=== PATIENT | male | born 1955 | race Caucasian/White ===

== ENCOUNTER → 2017-11-09 | Outpatient (CLI) | payer OTHER ==
[~2017-11-09] MED LIST: BUDE180I INH; CETI10TA84 PO; CYAN100073 PO; DOXA4TAB2 PO; GADAVIST IV PRN; LEVA45AE INH; LISI10TA PO; MULT-190 PO; PANT40TA PO
--- NOTE | 2017-11-09 14:09 | DIAGNOSTIC IMAGING REPORT ---
PROSTATE MRI COMBO CLINICAL HISTORY: 62 years-old Male presenting with PROSTATE CA. PSA 4.3 ng/mL. TECHNIQUE: Multisequence, multiplanar MR imaging of the prostate was performed 4 and after intravenous administration of 10 cc of Gadavist IV. Additional postprocessing was performed on a separate [employer] workstation by the radiologist for 3-D volumetric segmentation of the prostate and contouring of region(s) of interest (TYSON) for targeting. COMPARISON: CT of the abdomen and pelvis March 31, 2013. FINDINGS: Prostate: The prostate measures 5 x 4.3 x 4.5 cm cm (DynaCAD prostate boundary segmentation volume 50.31 mL). Moderate changes of benign prostatic hyperplasia. Precontrast T1 weighted imaging demonstrates no evidence of intrinsic T1 hyperintensity to suggest hemorrhage. Seminal vesicles normal. Suspicious lesion(s) described below: Lesion (DynaCAD TYSON) : Note is made of a 1.1 x 0.8 x 0.9 cm T2 hypointense focus within the right mid anterior transitional zone which demonstrates subtle increased signal intensity on the diffusion-weighted sequence and moderately decreased signal intensity on the ADC map with early enhancement. This is considered a PI-RADS 4 lesion. No additional suspicious lesions are identified. Bladder: Normal. Bowel: Visualized portion of the rectum normal. Note is made of T2 hyperintense material located between the rectum and prostate within the midline. This represents expected findings following placement of hydrogel. Lymph nodes: No lymphadenopathy in the visualized portion of the pelvis. Vasculature: Iliac vessels patent. Abdominal wall: Normal. Osseous structures: Normal bone marrow signal intensity. IMPRESSION: 1. 1.1 x 0.8 x 0.9 cm T2 hypointense focus with hypointensity on the ADC sequence and mild restricted diffusion within the right mid transitional zone within the mid gland. This lesion is suspicious for prostate cancer and considered a PI-RADS 4 lesion - Clinically significant cancer is likely to be present. This lesion has been segmented for targeted biopsy. 2. T2 hyperintense material located between the rectum and prostate within the midline which represents expected findings following placement of hydrogel. 3. Moderate benign prostatic hyperplasia. Electronically signed by: Melo Pearson M.D. 11/09/2017 2:08 PM Dictated Date/Time: 11/09/2017 9:49 AM
== END | disposition home or self-care (01) ==
LOC: C.MRIBC 08:08
PROVIDERS: ATTEND Family Medicine
DX: C61 Malignant neoplasm of prostate (principal); R93.8 Abnormal findings on diagnostic imaging of other specified body structures

== ENCOUNTER → 2018-02-18 | Outpatient (CLI) | payer OTHER ==
[~2018-02-18] MED LIST changes: -GADAVIST IV PRN
--- NOTE | 2018-02-18 09:44 | DIAGNOSTIC IMAGING REPORT ---
CT LUNG SCREENING, LOW DOSE WITH COMPUTER-AIDED DETECTION (CAD) CLINICAL HISTORY: LOW DOSE LUNG SCREENING smoker COMPARISON STUDY: No previous studies for comparison. CT DOSE: 78.43 mGy.cm TECHNIQUE: Low-dose helical CT was acquired without intravenous contrast from lung apices to bases and reconstructed at 2.5 mm every 2 mm. CAD was utilized for this study. A dose lowering technique was utilized adhering to the principles of ALARA. FINDINGS: Thyroid: Imaged portions of the thyroid gland are normal in appearance. Thoracic aorta: The thoracic aorta is normal in course and caliber, noting standard 3 vessel arch anatomy. Heart: The heart is normal in size and configuration, without pericardial effusion. Lungs and pleural spaces: There are no pleural effusions. There is no focal pulmonary consolidation. There are mild dependent atelectatic changes on the right. There is a low suspicion 2 mm right middle lobe perifissural nodule. Mediastinum: There is no mediastinal lymphadenopathy. Susan: There is no evidence of pathologic hilar adenopathy given the limitations of a noncontrast study Axilla: Clear. Upper abdomen: Partially visualized upper abdominal viscera is within normal limits. Skeletal structures: There are no lytic or blastic osseous lesions. IMPRESSION: 1. Low suspicion 2 mm right middle lobe perifissural nodule. [address] scanning is recommended in follow-up CAD FINDINGS: Nodule 1 Category: 2 Nodule 1 Status: Baseline Nodule 1 Description: Solid Nodule 1 Lesion ID: 1 Nodule 1 Slice Number: 63 Nodule 1 Volume (mm3): 5 Nodule 1 Major [place] mm: 3.3 Nodule 1 Minor [place] mm: 2.5 Overall Lung RADS Category: 2 Lung RADS Management Recommendation: Continue annual lung cancer screening. Lung RADS Follow Up Date: 2019-02-18 Lung RADS Nodule ID: 1 Electronically signed by: Venkat Javier M.D. 02/18/2018 9:43 AM Dictated Date/Time: 02/18/2018 9:36 AM
== END | disposition home or self-care (01) ==
LOC: C.CTS 09:15
PROVIDERS: ATTEND Physician Assistant
DX: R91.1 Solitary pulmonary nodule (principal); Z87.891 Personal history of nicotine dependence

== ENCOUNTER → 2018-02-25 | Outpatient (CLI) | payer OTHER ==
[~2018-02-25] MED LIST changes: +LEVA45AE
== END | disposition home or self-care (01) ==
LOC: C.LAB1850 10:05
PROVIDERS: ATTEND Physician Assistant Medical
DX: C61 Malignant neoplasm of prostate (principal)

== ENCOUNTER 2021-04-14 16:08 | Observation (INO) ==
[2021-04-14 16:49] LABS: Basophils # (auto) 0.01 K/uL (0-0.2); Basophils % (auto) 0.1 %; Eosinophils # (auto) 0.15 K/uL (0-0.5); Eosinophils % (auto) 2.2 %; Hematocrit (blood only) 43.8 % (42-52); Hemoglobin 14.8 g/dL (14.0-18.0); Immature Granulocytes # (auto) 0.02 K/uL (0.00-0.02); Immature Granulocytes % (auto) 0.3 %; Lymphocytes # (auto) 1.11 K/uL (1.2-3.4); Lymphocytes % (auto) 16.1 %; Mean Corpuscular Hemoglobin 28.2 pg (25-34); Mean Corpuscular Hgb Conc 33.8 g/dL (32-36); Mean Corpuscular Volume 83.6 fL (80-100); Mean Platelet Volume 8.9 fL (7.4-10.4); Monocytes % (auto) 10.1 %; Neutrophils # (auto) 4.91 K/uL (1.4-6.5); Neutrophils % (auto) 71.2 %; Platelet Count 185 K/uL (130-400); RDW Standard Deviation 48.6 fL (36.4-46.3); Red Blood Count 5.24 M/uL (4.7-6.1)
[2021-04-14 16:55] LABS: Partial Thromboplastin Time 25.2 Seconds (21.0-31.0); Prothrombin Time 10.5 Seconds (9.0-12.0)
--- NOTE | 2021-04-14 16:56 | Emergency Department Note ---
Impression & Plan Pulmonary embolism, Pulmonary nodule, right, History of prostate cancer ED Provider Note NAME: MIKEY MENDOZA AGE: 65 SEX: M ARRIVES VIA: Walk-In INFORMANT: patient ED PROVIDER(S): Martin Alberto MD CHIEF COMPLAINT: Referred. Outpatient CT with pulmonary emboli. PLAN: Disposition: Admit MEDICAL DECISION MAKING: The patient is a pleasant 65-year-old gentleman with a past medical history of JOSSIE on CPAP, COPD, hypertension, history of prostate cancer treated in 2018 with radiation therapy after having failed attempt at surgical resection and since in remission per the patient per trending PSAs who presents to the emergency department referred by his manager billing after having outpatient CT scan to evaluate his progressive exertional dyspnea and CT demonstrated right-sided segmental pulmonary emboli in addition to a new 6 mm irregular right upper lobe pulmonary nodule. Reports he has a chronic dry cough which he attributes to his acid reflux and otherwise denies any new or worsening cough, fevers, nausea, vomiting, diarrhea urinary symptoms. He denies any history of GI bleeding. On arrival the patient is in no acute distress, afebrile stable vital signs. He has a scant intermittent wheeze and lungs are otherwise clear. His respiratory effort is normal. EKG without overt acute ischemia. WBC, H/H and platelets within normal limits. Chemistry without metabolic acidosis. Electrolytes and LFTs unremarkable. Troponin negative/undetectable. Given the patient's age, history of cancer and lung disease PESI score is high risk and therefore reasonable to proceed with admission. Patient and his at bedside agree with this. Case was discussed with David Webb, with Dr. Robbin Hernandez hospitalist who will evaluate the patient for admission. Anticoagulation per admitting team. Triage Nursing notes reviewed and agree them. prior medical records reviewed Vital Signs: reviewed and remarkable for no significant abnormalities Differential diagnosis: Reactive airway disease, pneumonia, pneumothorax, COPD, CHF, infections, cardiac ischemia, pulmonary embolism, musculoskeletal, gastrointestinal, as well as other pathologies. ER treatment provided: See below. Diagnostics interpreted by me: ECG: NSR, 61 bpm, no ectopy, LVH, no overt ST elevation or depression. Cardiac Monitoring: An order for continuous cardiac monitoring was placed and demonstrated NSR, 61 bpm, no ectopy. Laboratory studies: See below Imaging studies: Outpatient CT 04/14/2021: CT ANGIOGRAM OF THE CHEST CLINICAL HISTORY: Dyspnea. COMPARISON STUDY: Chest CT dated 03/03/2019. TECHNIQUE: Following the IV administration of 120 cc of Optiray 320, CT angiogram of the chest was performed from the upper abdomen to the thoracic inlet utilizing the pulmonary embolus protocol. Images are reviewed in the axial, sagittal, and coronal planes. 3-D MIPS images are created and assessed. IV contrast was administered without complication. A dose lowering technique was utilized adhering to the principles of ALARA. CT DOSE: 525.88 mGycm FINDINGS: Thyroid: Imaged portions of the thyroid gland are normal in size and attenuation. Thoracic aorta: The thoracic aorta is normal in caliber and demonstrates standard 3-vessel variant arch anatomy. There is a bovine arch, and the left vertebral artery arises directly from the thoracic aorta. No dissection is seen. Pulmonary vasculature: The pulmonary trunk is normal in caliber. There are segmental emboli within branches of the right upper lobe pulmonary artery. The remaining pulmonary vessels appear clear. Heart: The heart is mildly enlarged and without pericardial effusion. Lungs and pleural spaces: Emphysematous change is noted. There is trace right pleural effusion. No airspace consolidation is seen typical for pneumonia. There is bibasilar scarring/atelectasis. The trachea and central airways are clear. There is a 6 mm irregular pulmonary nodule in the right upper lobe seen on image #169. An additional 3 mm right upper lobe pulmonary nodule is seen on image #188. Mediastinum: There is no mediastinal lymphadenopathy. Susan: Clear. Axillae: There is no axillary lymphadenopathy. Upper abdomen: There is a small hiatal hernia. Partially visualized upper abdominal viscera is otherwise within normal limits. Skeletal structures: No lytic or blastic bony lesions are seen. IMPRESSION: 1. There are segmental pulmonary emboli within branches of the right upper lobe pulmonary artery. 2. There is no airspace consolidation typical for pneumonia. 3. Trace right pleural effusion. 4. There is a 6 mm irregular right upper lobe pulmonary nodule. This is pathologically indeterminant but morphologically concerning, and this new from the 03/03/[address] A 3 month follow-up chest CT is recommended for reassessment. 5. An additional 3 mm right upper lobe pulmonary nodule is also new from previous and can also be reassessed at follow-up. 6. Mild cardiomegaly and emphysema. ACT 112: Positive. There are findings on this exam that require communication between the performing entity and the patient following Patient Test Result Information Act ([place] Act 112) guidelines. Electronically signed by: Prem Sanchez M.D. 04/14/2021 3:51 PM Consultation(s): David Webb, with Dr. Robbin Hernandez hospitalist who will e valuate the patient for admission. HPI: The patient is a pleasant 65-year-old gentleman with a past medical history of JOSSIE on CPAP, COPD, hypertension, history of prostate cancer treated in 2018 with radiation therapy after having failed attempt at surgical resection and since in remission per the patient per trending PSAs who presents to the emergency department referred by his manager billing after having outpatient CT scan to evaluate his progressive exertional dyspnea and CT demonstrated right- sided segmental pulmonary emboli in addition to a new 6 mm irregular right upper lobe pulmonary nodule. Reports he has a chronic dry cough which he attributes to his acid reflux and otherwise denies any new or worsening cough, fevers, nausea, vomiting, diarrhea urinary symptoms. He denies any history of GI bleeding. ROS: See above HPI for pertinent positives & negatives. A total of 10 systems reviewed and were otherwise negative. PAST MEDICAL HISTORY: See Below PAST SURGICAL HISTORY: see Below FAMILY HISTORY: see Below SOCIAL HISTORY: see Below HOME MEDICATIONS: see Below ALLERGIES: see Below VITALS: see Below PHYSICAL EXAMINATION: GENERAL: Awake, alert, fatigued-appearing, in no distress HENT: Normocephalic, atraumatic. Oropharynx with dry mucous membranes and otherwise unremarkable. EYES: Normal conjunctiva. Sclera non-icteric. NECK: Supple. No nuchal rigidity. FROM. No JVD. RESPIRATORY: Scant intermittent wheeze otherwise clear to auscultation. CARDIAC: Regular rate, normal rhythm. Extremities warm and well perfused. Pulses equal. ABDOMEN: Soft, non-distended. No tenderness to palpation. No rebound or guarding. No masses. RECTAL: Deferred. MUSCULOSKELETAL: Chest examination reveals no tenderness. The back is symmetrical on inspection without obvious abnormality. There is no CVA tenderness to palpation. No joint edema. LOWER EXTREMITIES: Calves are equal size bilaterally and non-tender. No edema. No discoloration. NEURO: Normal sensorium. No sensory or motor deficits noted. SKIN: No rash or jaundice noted. Martin Alberto MD Past Med/Surg History Medical History Allergic rhinitis Arthroscopy (03/31/13) "ACL REPAIR " COPD with asthma History of prostate cancer S/p radiation and Lupron treatment for 6 months Hypertension Kidney stones, mixed calcium oxalate JOSSIE on CPAP Pulmonary nodule Surgical History History of cholecystectomy History of inguinal hernia repair Family History Father Lung cancer Social History Smoking Status: Former smoker Cigarettes Per Day: 30; Smoking End Date: 2007; Second Hand Exposure: No; Hx Alcohol Use: Yes Alcohol type: beer Alcohol type Comment: 2 beers and 1 shot whiskey/night Hx Substance Use: No Preferred Language: Armenian Communication Ability: Effective Beliefs That Will Affect Care: None Current Living Situation: Spouse Other Information That Helps Us Care for You: No Feels Safe at Home: Yes Safety Concerns: Feels Safe At This Time Assistive Devices: None Allergies Allergies Allergy/AdvReac Type Severity Reaction Status Date / Time No Known Allergies Allergy Unverified 04/14/21 17:24 Home Meds Home Medications Medication Instructions Recorded Confirmed doxazosin 4 mg tablet 4 mg PO HS tab 04/27/20 04/14/21 montelukast 10 mg tablet 10 mg PO HS 04/27/20 04/14/21 cetirizine 10 mg capsule 10 mg PO DAILY cap 03/01/21 04/14/21 cyanocobalamin (vitamin B-12) 1,000 mcg PO DAILY tab 03/01/21 04/14/21 1,000 mcg tablet,extended release levalbuterol tartrate 45 2 inh INHALATION Q6H PRN 03/01/21 04/14/21 mcg/actuation aerosol inhaler pantoprazole 40 mg tablet,delayed 40 mg PO DAILY tab 03/01/21 04/14/21 release vitamins A,C,K-aigb-bfzlsh 14,320 1 cap PO BID 03/01/21 04/14/21 unit-226 mg-200 unit capsule losartan-hydrochlorothiazide 1 tab PO DAILY 04/14/21 04/14/21 Previous Rx's Medication Instructions Recorded fluticasone fur. 100 mcg-umeclid 1 inh INHALATION DAILY #60 ea 04/14/21 62.5 mcg-vilant 25 mcg inhalat.powder Results & Data (ED) Vital Signs Vital Signs - 24 hr 04/14/21 16:14 04/14/21 16:17 04/14/21 17:06 Temperature 36.4 C L Temperature Source Temporal Artery Scan Pulse Rate 63 Respiratory Rate 18 Respiratory Effort / Characteristics Non-Labored Respiratory Depth Respiratory Pattern Blood Pressure 157/93 H Blood Pressure [Left Arm] Blood Pressure Mean 114 Blood Pressure Mean [Left Arm] Blood Pressure Position [Left Arm] Pulse Oximetry 97 Oxygen Delivery Method Room Air Room Air Sepsis Recent Fever Within 48 Hours No Sepsis New/Unexplained Change in Mental Status N/A Sepsis Action Taken by Nursing No Action Required 04/14/21 17:07 04/14/21 17:08 04/14/21 17:10 Temperature Temperature Source Pulse Rate Respiratory Rate 14 12 Respiratory Effort / Characteristics Non-Labored Spontaneous Non-Labored Respiratory Depth Normal Respiratory Pattern Blood Pressure Blood Pressure [Left Arm] 133/89 Blood Pressure Mean Blood Pressure Mean [Left Arm] 103 Blood Pressure Position [Left Arm] Lying Pulse Oximetry 95 97 Oxygen Delivery Method Room Air Room Air Room Air Sepsis Recent Fever Within 48 Hours Sepsis New/Unexplained Change in Mental Status Sepsis Action Taken by Nursing 04/14/21 17:41 Temperature Temperature Source Pulse Rate Respiratory Rate Respiratory Effort / Characteristics Non-Labored Spontaneous Respiratory Depth Normal Respiratory Pattern Regular Blood Pressure Blood Pressure [Left Arm] Blood Pressure Mean Blood Pressure Mean [Left Arm] Blood Pressure Position [Left Arm] Pulse Oximetry Oxygen Delivery Method Sepsis Recent Fever Within 48 Hours Sepsis New/Unexplained Change in Mental Status Sepsis Action Taken by Nursing Laboratory Data Attestation: I reviewed the patient's lab results. Result diagrams: 04/14/21 16:30 04/14/21 16:30 Lab Results 04/14/21 04/14/21 04/14/21 Range/Units 16:30 16:30 16:30 WBC 6.90 (4.8-10.8) K/uL RBC 5.24 (4.7-6.1) M/uL Hgb 14.8 (14.0-18.0) g/dL Hct 43.8 (42-52) % MCV 83.6 (80-100) fL MCH 28.2 (25-34) pg MCHC 33.8 (32-36) g/dL RDW Std Deviation 48.6 H (36.4-46.3) fL RDW Coeff of Marycarmen 16.0 H (11.5-14.5) % Plt Count 185 (130-400) K/uL MPV 8.9 (7.4-10.4) fL Immature Gran % (Auto) 0.3 % Neut % (Auto) 71.2 % Lymph % (Auto) 16.1 % [place] % (Auto) 10.1 % Eos % (Auto) 2.2 % Baso % (Auto) 0.1 % Neut # (Auto) 4.91 (1.4-6.5) K/uL Lymph # (Auto) 1.11 L (1.2-3.4) K/uL [place] # (Auto) 0.70 H (0.11-0.59) K/uL Eos # (Auto) 0.15 (0-0.5) K/uL Baso # (Auto) 0.01 (0-0.2) K/uL Immature Gran # (Auto) 0.02 (0.00-0.02) K/uL PT 10.5 (9.0-12.0) Seconds INR 1.0 (0.9-1.1) APTT 25.2 (21.0-31.0) Seconds PTT Ratio 1.0 Sodium 138 (136-145) mmol/L Potassium 4.1 (3.5-5.1) mmol/L Chloride 106 (98-107) mmol/L Carbon Dioxide 29 (21-32) mmol/L Anion Gap 3.0 (3-11) BUN 18 (7-18) mg/dl Creatinine 1.08 (0.6-1.4) mg/dl Est Cr Clr Drug Dosing 76.3 ml/min Est GFR ( Amer) 81.9 ml/min Est GFR (Non-Af Amer) 70.6 ml/min BUN/Creatinine Ratio 16.8 (10-20) Glucose 89 (70-99) mg/dl Calcium 8.8 (8.5-10.1) mg/dl Magnesium 2.4 (1.8-2.4) mg/dl Total Bilirubin 0.4 (0.2-1) mg/dl AST 17 (15-37) U/L ALT 31 (12-78) U/L Alkaline Phosphatase 67 (45-117) U/L Troponin I < 0.015 (0-0.045) ng/ml Total Protein 7.2 (6.4-8.2) gm/dl Albumin 3.8 (3.4-5.0) gm/dl Globulin 3.4 (2.5-4.0) gm/dl Albumin/Globulin Ratio 1.1 (0.9-2) COVID-19 Eval Order SARS-CoV-2 (PCR) (Negative) 04/14/21 04/14/21 Range/Units 17:00 17:00 WBC (4.8-10.8) K/uL RBC (4.7-6.1) M/uL Hgb (14.0-18.0) g/dL Hct (42-52) % MCV (80-100) fL MCH (25-34) pg MCHC (32-36) g/dL RDW Std Deviation (36.4-46.3) fL RDW Coeff of Marycarmen (11.5-14.5) % Plt Count (130-400) K/uL MPV (7.4-10.4) fL Immature Gran % (Auto) % Neut % (Auto) % Lymph % (Auto) % [place] % (Auto) % Eos % (Auto) % Baso % (Auto) % Neut # (Auto) (1.4-6.5) K/uL Lymph # (Auto) (1.2-3.4) K/uL [place] # (Auto) (0.11-0.59) K/uL Eos # (Auto) (0-0.5) K/uL Baso # (Auto) (0-0.2) K/uL Immature Gran # (Auto) (0.00-0.02) K/uL PT (9.0-12.0) Seconds INR (0.9-1.1) APTT (21.0-31.0) Seconds PTT Ratio Sodium (136-145) mmol/L Potassium (3.5-5.1) mmol/L Chloride (98-107) mmol/L Carbon Dioxide (21-32) mmol/L Anion Gap (3-11) BUN (7-18) mg/dl Creatinine (0.6-1.4) mg/dl Est Cr Clr Drug Dosing ml/min Est GFR ( Amer) ml/min Est GFR (Non-Af Amer) ml/min BUN/Creatinine Ratio (10-20) Glucose (70-99) mg/dl Calcium (8.5-10.1) mg/dl Magnesium (1.8-2.4) mg/dl Total Bilirubin (0.2-1) mg/dl AST (15-37) U/L ALT (12-78) U/L Alkaline Phosphatase (45-117) U/L Troponin I (0-0.045) ng/ml Total Protein (6.4-8.2) gm/dl Albumin (3.4-5.0) gm/dl Globulin (2.5-4.0) gm/dl Albumin/Globulin Ratio (0.9-2) COVID-19 Eval Order Covid19 at [facility] SARS-CoV-2 (PCR) NEGATIVE (Negative) Administered Medications Doxazosin Mesylate (Doxazosin Mesylate 4 Mg Tab) 4 mg PO HS [facility] Stop: 05/14/21 20:59 Last Admin: 04/14/21 22:11 Dose: 4 mg Documented by: [id number] Heparin Sodium/Dextrose (Heparin Sodium/Dextrose) 25,000 units in 500 mls @ 29 mls/hr IV .[id number] [place]; Protocol Stop: 05/14/21 18:19 Last Admin: 04/14/21 19:32 Dose: 1,450 units/hr, 29 mls/hr Documented by: [id number] Cosigned by: [id number] Montelukast Sodium (Montelukast Sodium 10 Mg Tablet) 10 mg PO HS [facility] Stop: 05/14/21 20:59 Last Admin: 04/14/21 22:11 Dose: 10 mg Documented by: [id number] Discontinued Medications Heparin Sodium (Porcine) (Heparin Sod (Porcine) 1000 Unit/Ml) 7,000 units IV NOW ONE Stop: 04/14/21 18:21 Last Admin: 04/14/21 19:31 Dose: 7,000 units Documented by: [id number] Cosigned by: [id number] Lisinopril (Lisinopril 10 Mg Tab) 10 mg PO HS [facility] Stop: 05/14/21 20:59 Last Admin: 04/14/21 22:26 Dose: Not Given Documented by: [id number] Imaging Data Radiologist's Impression: Chest X-Ray 04/14/21 16:18 XR chest 1V portable CLINICAL HISTORY: Shortness of breath. Cough. COMPARISON STUDY: Chest CT March 03, [address] performed earlier today. FINDINGS: Lung volumes are normal. There is no pneumothorax or pleural effusion. Mild bibasilar opacities favor atelectasis. There is no consolidation to suggest pneumonia. Cardiomegaly is noted. There is no evidence for pulmonary edema. IMPRESSION: 1. Cardiomegaly. No evidence for pulmonary edema. 2. No consolidation to suggest pneumonia. ACT 112: Negative or not required by law. Electronically signed by: Melo Pearson M.D. 04/14/2021 5:15 PM Discharge Plan Visit Data Chief Complaint: Shortness of Breath/Dyspnea Stated Complaint: SHORTNESS OF BREATHE, BLOOD CLOT IN LUNG ED Provider: Martin Alberto Discharge Problem: Pulmonary embolism, Pulmonary nodule, right, History of prostate cancer Patient Disposition: Admitted As Inpatient Discharge Instructions Interventions: ED Discharge Assessment Last Done: 04/14/21 19:58
[2021-04-14 17:06] LABS: Alanine Aminotransferase 31 U/L (12-78); Albumin Level 3.8 gm/dl (3.4-5.0); Aspartate Aminotransferase 17 U/L (15-37); BUN Creatinine Ratio 16.8 (10-20); Blood Urea Nitrogen 18 mg/dl (7-18); Calcium 8.8 mg/dl (8.5-10.1); Carbon Dioxide 29 mmol/L (21-32); Chloride 106 mmol/L (98-107); Creatinine Clr Calc Pharmacy 76.3 ml/min; Est GFR (African American) 81.9 ml/min; Est GFR (Non-African American) 70.6 ml/min; Glucose 89 mg/dl (70-99); Magnesium 2.4 mg/dl (1.8-2.4); Potassium 4.1 mmol/L (3.5-5.1); Sodium 138 mmol/L (136-145)
[2021-04-14 17:11] LABS: Albumin Globulin Ratio 1.1 (0.9-2); Alkaline Phosphatase 67 U/L (45-117); Bilirubin,Total 0.4 mg/dl (0.2-1); Globulin 3.4 gm/dl (2.5-4.0); Total Protein 7.2 gm/dl (6.4-8.2); Troponin I < 0.015 ng/ml (0-0.045)
--- NOTE | 2021-04-14 17:16 | XRay Report ---
XR chest 1V portable CLINICAL HISTORY: Shortness of breath. Cough. COMPARISON STUDY: Chest CT March 03, [address] performed earlier today. FINDINGS: Lung volumes are normal. There is no pneumothorax or pleural effusion. Mild bibasilar opaci ties favor atelectasis. There is no consolidation to suggest pneumonia. Cardiomegaly is noted. There is no evidence for pulmonary edema. IMPRESSION: 1. Cardiomegaly. No evidence for pulmonary edema. 2. No consolidation to suggest pneumonia. ACT 112: Negative or not required by law. Electronically signed by: Melo Pearson M.D. 04/14/2021 5:15 PM
[2021-04-14] MEDS ORDERED: HEPARIN SOD (PORCINE) 1000 UNIT/ML IV ONE (18:20)
[2021-04-14] MEDS ORDERED: Heparin IV Adult Wt-Based Standard WITH Bolus Protocol IV SCH (18:30)
--- NOTE | 2021-04-14 19:28 | Ultrasound Report ---
BILATERAL LOWER EXTREMITY VENOUS DOPPLER CLINICAL HISTORY: Pulmonary emboli. COMPARISON STUDY: Bilateral lower extremity venous Doppler ultrasound March 31, 2013. TECHNIQUE: Sonography of the deep venous system of the bilateral lower extremities was performed. Co mpression and augmentation were evaluated. FINDINGS: The bilateral common femoral, superficial femoral and popliteal veins were compressible. A ugmentation was normal. Flow was shown within the deep calf vessels. IMPRESSION: No evidence of deep venous thrombus within the bilateral lower extremities. ACT 112: Negative or not required by law. Electronically signed by: Melo Pearson M.D. 04/14/2021 7:27 PM
[2021-04-14] MEDS: HEPARIN SODIUM/DEXTROSE 25,000 UNITS/500 ML BAG IV SCH (19:32)
[2021-04-14] MEDS ORDERED: ACETAMINOPHEN 325 MG TAB PO PRN (20:07)
--- NOTE | 2021-04-14 20:49 | History & Physical Report ---
Date of Service April 14, 2021 Assessment & Plan (1) Pulmonary embolism: -Admit to [facility] with telemetry -Patient presenting by referral of outpatient lab asst after outpatient CTA chest showed segmental pulmonary emboli within the branches of the right upper lobe -Hemodynamically stable, saturating well room air -May be provoked PE from travel to [place] in January since patient has been reporting progressive shortness of breath since that time -Start IV heparin with likely transition to DOAC -BL LE Dopplers negative for DVT (2) Pulmonary nodule, right: -CTA chest showed There is a 6 mm irregular right upper lobe pulmonary nodule and an additional 3 mm right upper lobe pulmonary nodule -will need follow-up CT in 3 months (3) Hypertension: -BP controlled, continue lisinopril -Yesterday patient was instructed to stop lisinopril and start losartan/HCTZ 50 mg/12.5 -recommend making this change after discharge (4) COPD with asthma: -No signs of acute exacerbation, continue home inhalers (5) JOSSIE on CPAP: -CPAP as per home settings (6) DVT prophylaxis: -On IV heparin as above Admission and Anticipated Discharge Date Admission Date: April 14, 2021 History of Present Illness Chief Complaint: Referred by lab asst for PE Primary Care Provider: Ulysses Gibbs MD 65-year-old male with PMH COPD with asthma, JOSSIE on CPAP, history of prostate cancer s/p radiation and Lupron treatment, HTN, BPH, and other problems listed below who presents to the ED by referral of outpatient lab asst for pulmonary embolism. Patient was evaluated yesterday and was reporting progressive exertional shortness of breath. Outpatient D-dimer was obtained that was elevated which prompted CTA chest. CTA chest showed segmental pulmonary emboli within the branches of the right upper lobe and also 6 mm irregular right upper lobe pulmonary nodule and 3 mm right upper lobe pulmonary nodule. Patient reports traveling to [place] in January. Denies any other recent travel. No chest pain. Denies lightheadedness, dizziness, diaphoresis, sy ncopal events. No abdominal pain, nausea, vomiting, diarrhea. Denies any other recent illnesses, fevers, chills. No urinary symptoms. In the ED, patient is hemodynamically stable and saturating well on room air. Labs are unremarkable. Allergies Allergy/AdvReac Type Severity Reaction Status Date / Time No Known Allergies Allergy Unverified 04/14/21 17:24 Home Medications Medication Instructions Recorded Confirmed Type doxazosin 4 mg tablet 4 mg PO HS tab 04/27/20 04/14/21 History montelukast 10 mg tablet 10 mg PO HS 04/27/20 04/14/21 History cetirizine 10 mg capsule 10 mg PO DAILY cap 03/01/21 04/14/21 History cyanocobalamin (vitamin B-12) 1,000 mcg PO DAILY tab 03/01/21 04/14/21 History 1,000 mcg tablet,extended release levalbuterol tartrate 45 2 inh INHALATION Q6H PRN 03/01/21 04/14/21 History mcg/actuation aerosol inhaler pantoprazole 40 mg tablet,delayed 40 mg PO DAILY tab 03/01/21 04/14/21 History release vitamins A,C,F-rsif-xqycnf 14,320 1 cap PO BID 03/01/21 04/14/21 History unit-226 mg-200 unit capsule fluticasone fur. 100 mcg-umeclid 1 inh INHALATION DAILY #60 ea 04/14/21 04/14/21 Rx 62.5 mcg-vilant 25 mcg inhalat.powder losartan-hydrochlorothiazide 1 tab PO DAILY 04/14/21 04/14/21 History Past Med/Surg History Medical History Allergic rhinitis Arthroscopy (03/31/13) "ACL REPAIR " COPD with asthma History of prostate cancer S/p radiation and Lupron treatment for 6 months Hypertension Kidney stones, mixed calcium oxalate JOSSIE on CPAP Pulmonary nodule Surgical History History of cholecystectomy History of inguinal hernia repair Family History Father Lung cancer Social History (Updated 04/14/21 @ 20:46 by KELI Webb) Smoking Status: Former smoker Cigarettes Per Day: 30; Second Hand Exposure: Yes; Hx Alcohol Use: Yes Alcohol type: beer and hard liquor Alcohol type Comment: 2 beers and 1 shot whiskey/night Preferred Language: Cook Islander Beliefs That Will Affect Care: None Feels Safe at Home: Yes Review of Systems Review of Systems: ROS per HPI, all other systems reviewed and negative Physical Exam Constitutional: WD/WN, vitals as above Eyes: PERRL, conjunctivae normal, anicteric sclerae ENMT: external ear and nose normal, oropharynx normal Respiratory: normal respiratory effort, lungs clear to auscultation Cardiovascular: Rate/Rhythm: regular rate and regular rhythm Vessels: normal peripheral pulses Extremities: no edema Gastrointestinal (Abdomen): normal bowel sounds, soft, nontender, no hepatosplenomegaly Musculoskeletal: no cyanosis or clubbing, extremities motor strength 5/5 Skin: no rashes, warm and dry Neurologic: PERRL, EOMI, accommodation nl, no face palsy, no dysarthria Psychiatric: A+Ox3, euthymic affect Results & Data Results & Data ([facility]) Vital Signs (Past 12 Hours) Vital Signs Temp Pulse Pulse Resp BP BP Pulse Ox 04/14/21 19:30 56 L 18 165/82 H 98 04/14/21 18:45 68 14 94 04/14/21 17:08 12 97 04/14/21 17:07 14 133/89 95 04/14/21 16:14 36.4 C L 63 18 157/93 H 97 Laboratory Results Short CBC 04/14/21 Range/Units 16:30 WBC 6.90 (4.8-10.8) K/uL Hgb 14.8 (14.0-18.0) g/dL Hct 43.8 (42-52) % Plt Count 185 (130-400) K/uL BMP 04/14/21 16:30 Sodium 138 Potassium 4.1 Chloride 106 Carbon Dioxide 29 BUN 18 Creatinine 1.08 Glucose 89 Calcium 8.8 Cardiac Enzymes 04/14/21 Range/Units 16:30 Troponin I < 0.015 (0-0.045) ng/ml Liver Function 04/14/21 Range/Units 16:30 Total Bilirubin 0.4 (0.2-1) mg/dl AST 17 (15-37) U/L ALT 31 (12-78) U/L Alkaline Phosphatase 67 (45-117) U/L Albumin 3.8 (3.4-5.0) gm/dl Diagnostic Findings CTA chest: IMPRESSION: 1. There are segmental pulmonary emboli within branches of the right upper lobe pulmonary artery. 2. There is no airspace consolidation typical for pneumonia. 3. Trace right pleural effusion. 4. There is a 6 mm irregular right upper lobe pulmonary nodule. This is pathologically indeterminant but morphologically concerning, and this new from the 03/03/[address] A 3 month follow-up chest CT is recommended for reassessment. 5. An additional 3 mm right upper lobe pulmonary nodule is also new from previous and can also be reassessed at follow-up. 6. Mild cardiomegaly and emphysema. Code Status & VTE Plan VTE Prophylaxis Plan VTE Prophylaxis will be ordered: No Supervising Physician Co-Signing Physician Notes I have seen and examined the patient and have discussed the case with the provider above. I agree with the assessment and plan as stated with the following exceptions. 65-year-old man with a history of hypertension presented to pulmonary clinic today. Some adjustments were made to his blood pressure regimen which were lisinopril 10 switched to losartan 50/HCTZ 12.5. Home medications were rereconciled and he will start this in the morning. Shortness of breath led to work-up for subsegmental PE. Lower extremity Dopplers revealed no evidence of DVT. He has no pain and only minimal dyspnea on exertion. He is hemodynamically stable and is not hypoxic. Physical exam within normal limits with clear lungs to auscultation and no tachycardia. Heparin drip started overnight to ensure stabilization, easy reversibility and anti-inflammatory effect. We will likely transition him to [facility] tomorrow ensuring no conduction abnormalities overnight or progressive issues with hypoxia. Plan for discharge to home if medically stable in a.m. DO Robbin
[2021-04-14] MEDS ORDERED: MONTELUKAST SODIUM 10 MG TABLET PO SCH (21:00)
[2021-04-14] MEDS ORDERED: DOXAZosin MESYLATE 4 MG TAB PO SCH (21:00)
[2021-04-14] MEDS ORDERED: lisinopril 10 MG TAB PO SCH (21:00)
[2021-04-15 01:36] LABS: Partial Thromboplastin Ratio 2.5
[2021-04-15 01:48] LABS: Partial Thromboplastin Time 66.3 Seconds (21.0-31.0)
[2021-04-15 06:02] LABS: Hematocrit (blood only) 39.2 % (42-52); Hemoglobin 13.2 g/dL (14.0-18.0); Mean Corpuscular Hemoglobin 28.1 pg (25-34); Mean Corpuscular Hgb Conc 33.7 g/dL (32-36); Mean Corpuscular Volume 83.6 fL (80-100); Platelet Count 176 K/uL (130-400); RDW Coefficient of Variation 16.1 % (11.5-14.5); RDW Standard Deviation 48.7 fL (36.4-46.3); Red Blood Count 4.69 M/uL (4.7-6.1); White Blood Count 5.77 K/uL (4.8-10.8)
[2021-04-15 06:27] LABS: Partial Thromboplastin Ratio 2.6
[2021-04-15 06:29] LABS: BUN Creatinine Ratio 19.2 (10-20); Calcium 8.3 mg/dl (8.5-10.1); Est GFR (African American) 86.7 ml/min; Est GFR (Non-African American) 74.8 ml/min; Potassium 3.9 mmol/L (3.5-5.1)
[2021-04-15 06:39] LABS: Partial Thromboplastin Time 67.3 Seconds (21.0-31.0)
[2021-04-15] MEDS: HEPARIN SODIUM/DEXTROSE 25,000 UNITS/500 ML BAG IV SCH (06:44)
[2021-04-15 08:49] VITALS: TEMP 98.2; O2SAT 97
[2021-04-15] MEDS ORDERED: NON-FORMULARY MEDICATION (Fluticasone-Umeclidin-Vilanter [Trelegy Ellipta] 100-62.5-25 mcg INH SCH (09:00)
[2021-04-15] MEDS ORDERED: LOSARTAN/HCTZ 50/12.5MG TAB PO SCH (09:00)
[2021-04-15] MEDS ORDERED: UMECLIDINIUM/VILANTEROL 62.5/25MCG 7 PUFFS/INHALER INH SCH (09:00)
[2021-04-15] MEDS ORDERED: CYANOCOBALAMIN 500 MCG TABLET (VITAMIN B-12) PO SCH (09:00)
[2021-04-15] MEDS ORDERED: CETIRIZINE HCL 10 MG TABLET PO SCH (09:00)
[2021-04-15] MEDS ORDERED: PANTOprazole 40 MG TAB PO SCH (09:00)
[2021-04-15] MEDS ORDERED: FLUTICASONE FUROATE 100MCG 14 PUFFS/INHALER INH SCH (09:00)
[2021-04-15 09:19] VITALS: BP 102/67
--- NOTE | 2021-04-15 12:19 | Discharge Summary ---
Date of Service April 15, 2021 Admission HPI Per Admitting Provider 65-year-old male with PMH COPD with asthma, JOSSIE on CPAP, history of prostate cancer s/p radiation and Lupron treatment, HTN, BPH, and other problems listed below who presents to the ED by referral of outpatient decorator mannequin for pulmonary embolism. Patient was evaluated yesterday and was reporting progressive exertional shortness of breath. Outpatient D-dimer was obtained that was elevated which prompted CTA chest. CTA chest showed segmental pulmonary emboli within the branches of the right upper lobe and also 6 mm irregular right upper lobe pulmonary nodule and 3 mm right upper lobe pulmonary nodule. Patient reports traveling to [place] in January. Denies any other recent travel. No chest pain. Denies lightheadedness, dizziness, diaphoresis, syncopal events. No abdominal pain, nausea, vomiting, diarrhea. Denies any other recent illnesses, fevers, chills. No urinary symptoms. In the ED, patient is hemodynamically stable and saturating well on room air. Labs are unremarkable. Admission Exam Per Admitting Provider Constitutional: WD/WN, vitals as above Eyes: PERRL, conjunctivae normal, anicteric sclerae ENMT: external ear and nose normal, oropharynx normal Respiratory: normal respiratory effort, lungs clear to auscultation Cardiovascular: Rate/Rhythm: regular rate and regular rhythm Vessels: normal peripheral pulses Extremities: no edema Gastrointestinal (Abdomen): normal bowel sounds, soft, nontender, no hepatosplenomegaly Musculoskeletal: no cyanosis or clubbing, extremities motor strength 5/5 Skin: no rashes, warm and dry Neurologic: PERRL, EOMI, accommodation nl, no face palsy, no dysarthria Psychiatric: A+Ox3, euthymic affect Principal Diagnosis acute PE Discharge Exam CONSTITUTIONAL: WNWD, vitals as above, generally well-appearing EYES: normal conjunctivae, no scleral icterus ENT: external ear and nose normal, MMM RESPIRATORY: clear to auscultation bilaterally, no crackles, rales or wheezes, normal respiratory effort CARDIOVASCULAR: regular rate and rhythm, S1 and 2 heard without murmurs, gallops or rubs, no JVD, no peripheral edema CHEST: inspection of chest was normal GASTROINTESTINAL: soft, nontender, nondistended MUSCULOSKELETAL: strength 5/5 throughout, head is normocephalic and atraumatic SKIN: warm and dry NEUROLOGIC: CN 2-12 grossly intact, no sensory deficit, normal cognition, normal speech, no tremor PSYCHIATRIC: alert cooperative and oriented to person, place and time. Discharge Data Allergies Allergy/AdvReac Type Severity Reaction Status Date / Time No Known Allergies Allergy Unverified 04/14/21 17:24 Consultations 04/14/21 17:24 ED Decision to Admit Stat [facility]dered [facility] [phone] [facility]ound Report Patient: MIKEY MENDOZA Date: 04/14/21#: [id number]: [id number] ID:[id number]: [address]Birth Date: [address] [place] [address] Zip: [place] [id number]: 65Location: EDSex: MRoom/Bed: Att Phy: Diagnosis: SHORTNESS OF BREATHE, BLOOD CLOT IN LUNGPri Phy: Ulysses Gibbs MDService Date: 04/14/21Fa Phy: Interpreting Phy: Melo Pearson MDAdmit Phy: Ordering Phy: Amarilis Borrego cc: ~ BILATERAL LOWER EXTREMITY VENOUS DOPPLER CLINICAL HISTORY: Pulmonary emboli. COMPARISON STUDY: Bilateral lower extremity venous Doppler ultrasound March 31, 2013. TECHNIQUE: Sonography of the deep venous system of the bilateral lower extremities was performed. Compression and augmentation were evaluated. FINDINGS: The bilateral common femoral, superficial femoral and popliteal veins were compressible. Augmentation was normal. Flow was shown within the deep calf vessels. IMPRESSION: No evidence of deep venous thrombus within the bilateral lower extremities. ACT 112: Negative or not required by law. Electronically signed by: Melo Pearson M.D. 04/14/2021 7:27 PM Dictated: 04/14/211926Transcribed: 04/14/211926 ------- [facility] [phone] XRay Report Patient: MIKEY MENDOZA Date: 04/14/21#: [id number]: [id number] ID:[id number]: [address]Birth Date: [address] [place] [address] Zip: [place] [id number]: 65Location: EDSex: MRoom/Bed: Att Phy: Diagnosis: SHORTNESS OF BREATHE, BLOOD CLOT IN LUNGPri Phy: Ulysses Gibbs MDService Date: 04/14/21Fam Phy: Interpreting Phy: Melo Pearson MDAdmit Phy: Ordering Phy: Martin Alberto M.D. cc: ~ XR chest 1V portable CLINICAL HISTORY: Shortness of breath. Cough. COMPARISON STUDY: Chest CT March 03, [address] performed earlier today. FINDINGS: Lung volumes are normal. There is no pneumothorax or pleural effusion. Mild bibasilar opacities favor atelectasis. There is no consolidation to suggest pneumonia. Cardiomegaly is noted. There is no evidence for pulmonary edema. IMPRESSION: 1. Cardiomegaly. No evidence for pulmonary edema. 2. No consolidation to suggest pneumonia. ACT 112: Negative or not required by law. Electronically signed by: Melo Pearson M.D. 04/14/2021 5:15 PM Dictated: 04/14/211713Transcribed: 04/14/211713 Hospital Course (1) Pulmonary embolism: -Admit to [facility] with telemetry -Patient presenting by referral of outpatient decorator mannequin after outpatient CTA chest showed segmental pulmonary emboli within the branches of the right upper lobe -Hemodynamically stable, saturating well room air -feeling well, denies significant dyspnea or pain -May be provoked PE from travel to [place] in January since patient has been reporting progressive shortness of breath since that time -Start IV heparin with transition to Eliquis -BL LE Dopplers negative for DVT (2) Pulmonary nodule, right: -CTA chest showed There is a 6 mm irregular right upper lobe pulmonary nodule and an additional 3 mm right upper lobe pulmonary nodule -will need follow-up CT in 3 months (3) Hypertension: -BP controlled, continue lisinopril -Patient was recently instructed by his decorator mannequin prior to admission to stop lisinopril and start losartan/HCTZ 50 mg/12.5 -recommend making this change at discharge (4) COPD with asthma: -No signs of acute exacerbation, continue home inhalers (5) JOSSIE on CPAP: -CPAP as per home settings (6) DVT prophylaxis: IV heparin with transition to Eliquis. At time of discharge he was hemodynamically stable and afebrile and tolerating PO. He was not reporting significant chest pain or dyspnea on exertion and was discharged in stable condition with close primary care followup recommended. Total Time Total Time Spent Total Time Spent (In Minutes): 60 Total Time Includes: Examination of the Patient, Discharge Planning, Medication Reconciliation and Communication With Other Providers Discharge Plan Discharge Items Patient Disposition: Home - Self-Care Reason For Visit: PE Discharge Diagnosis: acute PE Condition on Discharge: Good Activity: Resume your previous activity Non-emergency contact: Primary Care Provider Call non-emergency contact if: you have any medication questions, your symptoms worsen and your pain is not controlled Follow-up/Referrals: Ulysses Gibbs MD [Primary Care Provider] - (Date & Time 04/21/2021 9:00 AM Provider Jani Blanco MD Department [facility] ) Diet: Regular Addtl Attending Provider Instructions: Please take all medications as instructed on discharge list below. You are being placed on apixaban, which is a blood thinner that treats the blood clots in your lungs. You should remain on this for at least 3 months. Initial dosing is 10 mg (2 tabs) twice daily for 7 days, then 5mg twice daily (1 tab) for the remainder of time. Refills should be obtained from your primary care provider (PCP). Please avoid taking other blood thinners such as NSAIDs (non-steroidal anti- inflammatory drugs)-Motrin, Ibuprofen, Naproxen, Aleve, etc. You will need repeat blood work (basic metabolic panel) in 2-4 weeks after the change in your blood pressure medications. This may be ordered through your PCP on follow-up, also. You were found to have two new pulmonary nodules on your CT scan which will need a 3 month follow-up CT to assess for stability. This may be ordered by your PCP. It may be prudent to see a banquet food server for a formal hypercoagulable workup if there is no clear provoking factor for the development of your blood clot. Please discuss this with your PCP. It was a pleasure taking care of you! Please call if you have any questions or problems. You can reach a [facility] hospitalist on duty at [facility] 24 hours a day by calling [phone]. Take care of yourself. Leonela Siegel, [facility] Hospitalist Pending Studies at Discharge: No Stand-Alone Forms: My [facility] Medications and DC Order Prescriptions: New apixaban 5 mg tablet 5 mg PO UD Qty: 70 RF: 0 Continued doxazosin 4 mg tablet 4 mg PO HS RF: 0 montelukast 10 mg tablet 10 mg PO HS RF: 0 cetirizine 10 mg capsule 10 mg PO DAILY RF: 0 pantoprazole 40 mg tablet,delayed release (DR/EC) 40 mg PO DAILY RF: 0 cyanocobalamin (vitamin B-12) 1,000 mcg tablet extended release 1,000 mcg PO DAILY RF: 0 PreserVision AREDS 14,320-226-200 fhts-vx-sakh capsule 1 cap PO BID RF: 0 levalbuterol tartrate [Xopenex HFA] 45 mcg/actuation HFA aerosol inhaler 2 inh inhalation Q6H PRN (Reason: wheeze) RF: 0 Trelegy Ellipta 100-62.5-25 mcg blister with device 1 inh inhalation DAILY Qty: 60 RF: 3 losartan-hydrochlorothiazide 50-12.5 mg Tablet 1 tab PO DAILY Qty: 30 RF: 0 Discharge Orders: Discharge Order (Routine); Ordered 04/15/21 Ordered By: Leonela Siegel Admission Data Admit Date/Time: 04/14/21 18:05 Attending Provider: Leonela Siegel Admit Provider: Leonela Siegel Primary Care Provider: Ulysses Gibbs Other Providers: Leonela Siegel Other Interventions: Discharge Summary Assessment (RN) Last Done: 04/15/21 13:01
--- NOTE | 2021-04-15 12:23 | Electrocardiogram Report ---
Test Reason : Blood Pressure : / mmHG Vent. Rate : 061 BPM Atrial Rate : 061 BPM P-R Int : 158 ms QRS Dur : 090 ms QT Int : 402 ms P-R-T Axes : 036 -39 014 degrees QTc Int : 404 ms Poor data quality, interpretation may be adversely affected Normal sinus rhythm Left axis deviation Minimal voltage criteria for LVH, may be normal variant Abnormal ECG When compared with ECG of 23-AUG-2015 14:01, No significant change was found Confirmed by Jani Ramírez ([id number]) on 04/15/2021 12:23:08 PM Referred By: Casimiro Drew Confirmed By:Jani Ramírez
[2021-04-15] MEDS ORDERED: APIXABAN 5 MG TABLET PO STA (12:27)
[2021-04-15 13:02] VITALS: PULSE 56
[2021-04-15 13:04] LABS: Partial Thromboplastin Time 53.3 Seconds (21.0-31.0)
== END 2021-04-15 14:28 | disposition home or self-care (01) ==
LOC: ED 16:08 → 2N 18:05 → INTOOBSV 18:05 → 2N 19:58

== ENCOUNTER 2022-03-31 08:53 | Observation (INO) ==
--- NOTE | 2022-02-27 14:12 | PAT Medication Instructions ---
Medication Instructions Date of Service February 27, 2022 Home Medications Medication Instructions Recorded apixaban 5 mg tablet 5 mg PO BID #70 tab 12/08/21 montelukast 10 mg tablet 10 mg PO HS cetirizine 10 mg capsule 10 mg PO HS cyanocobalamin (vitamin B-12) 1,000 mcg tablet,extended release 1,000 mcg PO QAM levalbuterol tartrate 45 mcg/actuation aerosol inhaler (Xopenex HFA) 2 inh INHALATION Q6H PRN pantoprazole 40 mg tablet,delayed release 40 mg PO QAM PreserVision AREDS 1 cap PO BID apixaban 5 mg tablet 5 mg PO BID multivitamin 1 tab PO QAM psyllium husk 3.4 gram/5.4 gram oral powder (Metamucil) 1 tbsp PO QAM fluticasone fur. 100 mcg-umeclid 62.5 mcg-vilant 25 mcg inhalat.powder (Trelegy Ellipta) 1 inh INHALATION QAM losartan 50 mg-hydrochlorothiazide 12.5 mg tablet 0.5 tab PO QAM tamsulosin 0.4 mg capsule 0.4 mg PO HS ASK your prescriber and surgeon apixaban 5 mg tablet 5 mg PO BID (in order for spinal anesthesia, Apixaban/Eliquis needs to be stopped 72 hours/3 days before surgery. Please check if okay with doctor that prescribes this to you) STOP taking 2 weeks before surgery (or as soon as possible if surgery is within 2 weeks) PreserVision AREDS 1 cap PO BID DO NOT take the morning of surgery cyanocobalamin (vitamin B-12) 1,000 mcg tablet,extended release 1,000 mcg PO QAM multivitamin 1 tab PO QAM psyllium husk 3.4 gram/5.4 gram oral powder (Metamucil) 1 tbsp PO QAM losartan 50 mg-hydrochlorothiazide 12.5 mg tablet 0.5 tab PO QAM Take morning of surgery With a small sip of water, OTHERWISE NOTHING TO EAT OR DRINK AFTER MIDNIGHT: levalbuterol tartrate 45 mcg/actuation aerosol inhaler (Xopenex HFA) 2 inh INHALATION Q6H PRN (if needed) pantoprazole 40 mg tablet,delayed release 40 mg PO QAM fluticasone fur. 100 mcg-umeclid 62.5 mcg-vilant 25 mcg inhalat.powder (Trelegy Ellipta) 1 inh INHALATION QAM Take evening before surgery montelukast 10 mg tablet 10 mg PO HS cetirizine 10 mg capsule 10 mg PO HS levalbuterol tartrate 45 mcg/actuation aerosol inhaler (Xopenex HFA) 2 inh INHALATION Q6H PRN (if needed) tamsulosin 0.4 mg capsule 0.4 mg PO HS Other Notes If you have any questions please call us at [phone] or [phone] or [phone] or [phone]
--- NOTE | 2022-03-01 12:21 | Anesthesiology Consultation ---
Date of Service March 01, 2022 Assessment & Plan (1) Encounter for pre-operative examination: Chart Review Chart Review: Acceptable Risk for Surgery (pending preop Covid testing results ) and Patient seen in Pre Admission Testing -Pt did discuss Eliquis instructions with pulm office- pt is able to hold Eliquis 72 hours prior to surgery in order to get SAB Per PAT appt on 03/01/22, patient denies any recent travel or large group activities. No known Covid positive exposures or Covid related symptoms. No known Covid infection in the past 90 days. Pt is vaccinated for Covid. Preop Covid testing scheduled 03/29/22= will await results. Educated on importance of self quarantining, social distancing and wearing mask in public for the patient one week prior to surgery and after Covid testing done Teaching & Discussion Pre-Anesthesia Teaching/Discussion Notes: Instructed NPO after midnight before surgery,except medications with 15 cc of water. Medication instructions provided according to the PAT guidelines. History Surgery Operation Date: 03/31/22 10:30 Proposed Procedures p Right Total Knee Arthroplasty - Renaldo Alcaraz DO Height/Weight Height: 5 ft 5 in Weight: 111.7 kg Allergies Allergy/AdvReac Type Severity Reaction Status Date / Time No Known Allergies Allergy Verified 02/24/22 15:52 Medications Home Medications Medication Instructions Recorded Confirmed Last Taken montelukast 10 mg tablet 10 mg PO HS 04/27/20 02/24/22 Unknown cetirizine 10 mg capsule 10 mg PO HS cap 03/01/21 02/24/22 Unknown cyanocobalamin (vitamin B-12) 1,000 mcg PO QAM tab 03/01/21 02/24/22 Unknown 1,000 mcg tablet,extended release levalbuterol tartrate 45 2 inh INHALATION Q6H PRN 03/01/21 02/24/22 Unknown mcg/actuation aerosol inhaler (Xopenex HFA) pantoprazole 40 mg tablet,delayed 40 mg PO QAM tab 03/01/21 02/24/22 Unknown release vitamins A,C,E-wnjo-qummsb 14,320 1 cap PO BID 03/01/21 02/24/22 Unknown unit-226 mg-200 unit capsule (PreserVision AREDS) apixaban 5 mg tablet 5 mg PO BID #70 tab 12/08/21 02/24/22 Unknown multivitamin 1 tab PO QAM 01/05/22 02/24/22 Unknown psyllium husk 3.4 gram/5.4 gram 1 tbsp PO QAM 01/05/22 02/24/22 Unknown oral powder (Metamucil) fluticasone fur. 100 mcg-umeclid 1 inh INHALATION QAM 02/24/22 02/24/22 Unknown 62.5 mcg-vilant 25 mcg inhalat.powder (Trelegy Ellipta) losartan 50 mg-hydrochlorothiazide 0.5 tab PO QAM 02/24/22 02/24/22 Unknown 12.5 mg tablet tamsulosin 0.4 mg capsule 0.4 mg PO HS 02/24/22 02/24/22 Unknown Past Medical History Medical History (Updated 03/01/22 @ 16:53 by Roxy Silva PA-C) Allergic rhinitis Chronic dyspnea Multifactorial per pulm records (diastolic CHF, obesity, deconditioning, obstructive lung disease) Inhaler daily/prn- breathing stable GERD (gastroesophageal reflux disease) History of kidney stones No recent issues History of prostate cancer Dx'ed 2018- attempted prostatectomy S/p radiation and Lupron treatment for 6 months History of rheumatic fever as a child At the age of 3--had a heart murmur but "grew out of it"--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 Hypertension Morbid obesity with BMI of 40.0-44.9, adult BMI 41.5 Nausea and vomiting after administration of anesthetic agent On anticoagulant therapy on eliquis bid for hx of PE JOSSIE on CPAP Prothrombin gene mutation Heterozygous; will need lifelong AC per heme records Pulmonary embolism in 03/2021-on Eliquis bid Pulmonary nodule Resolved per heme records Exercise / Class Metabolic Activity III < 4 Walking/Shop/Light housework (one flight of stairs - no chest pain, mild SOB ) Past Family History Family History Father Lung cancer Cancer Grandmother (Maternal) Breast cancer Mother Colorectal cancer Hypertension Brother Colorectal cancer Other No family history of adverse response to anesthesia Denies family history of Ovarian cancer Prostate cancer Myocardial infarction Past Surgical History Surgical History H/O cataract extraction bilateral H/O thumb surgery right ligament repair History of arthroscopy of right knee ACL repair History of cholecystectomy History of colonoscopy History of left inguinal hernia repair History of lithotripsy History of prostate biopsy malignant History of right inguinal hernia repair History of surgery (~2017) pt states he was in robotic surgery for prostate removal @ [facility], however it was unsuccessful d/t "they were knicking arteries and I was bleeding out so they had to stop and didnt remove it" History of tonsillectomy History of wisdom tooth extraction S/P cystoscopy with ureteral stent placement Past Anesthesia History No Hx of Anesthesia Complications and No Family Hx of Anesthesia Complications History of PONV History of PONV (improved with IV anti-nausea medications ) and Hx of Motion Sickness (mild ) Social History Smoking Status: Former smoker tobacco type: cigarettes Smoking cigarettes per day: 30 Do You Dip or Chew Tobacco: No Smoking End Date: quit 2006 Hx Alcohol Use: Yes Alcohol type: beer and hard liquor alcohol intake frequency: a few times a week Hx Substance Use: No substance use type: does not use Review of Systems Occ wheezing (chronic and stable) Patient denies chest pain, shortness of breath at rest, cough, wheezing, palpitations. No hx of seizures, stroke, [place]. No hx of blood transfusions Physical Exam Vital Signs VITALS BP 121/80 P 76 TEMP 98.4 SP02 98% RESP 16 Constitutional no acute distress ENMT Mouth: no TMJ clicking Thyromental Distance: < 3.5 Finger Breadths (3.0) Mallampati Class: II Crowns to molars and side teeth Bottom front teeth capped Neck + short neck and + limited neck extension Respiratory normal respiratory effort; no respiratory distress Auscultation: lungs clear to auscultation bilaterally; no wheezes Cardiovascular Rate/Rhythm: regular rate and regular rhythm Heart Sounds: no murmur Vessels: no carotid bruit Musculoskeletal Spine: no pain with cervical ROM Extremities: extremities normal to inspection Psychiatric Orientation: alert Lab Results Anesthesia Preop Results Results Anesthesia Widget: WBC 7.10 K/uL (4.8-10.8) 03/01/22 Hgb 16.2 g/dL (14.0-18.0) 03/01/22 Hct 44.4 % (42-52) 03/01/22 Plt 218 K/uL (130-400) 03/01/22 Na 137 mmol/L (136-145) 03/01/22 K 3.6 mmol/L (3.5-5.1) 03/01/22 Cl 103 mmol/L (98-107) 03/01/22 CO2 27 mmol/L (21-32) 03/01/22 BUN 24 mg/dl (6-23) H 03/01/22 Creat 0.94 mg/dl (0.6-1.4) 03/01/22 Glucose Level 107 mg/dl (70-99(Fasting)) H 03/01/22 PT 11.0 Seconds (9.0-12.0) 03/01/22 PTT 31.9 Seconds (21.0-31.0) H 03/01/22 INR 1.0 (0.9-1.1) 03/01/22 Blood Type O Positive 03/01/22 Antibody Screen NEGATIVE 03/01/22 Testing Electrocardiogram Date: 03/01/22 Findings: + NSR @ (67bpm ) and + no change from (April 14, 2021 per cardio ) Left anterior fascicular block. Minimal voltage criteria for LVH, may be normal variant Chest X-Ray Date: 03/01/22 Findings: + NAD and + cardiomegaly (Stable/mild) Linear right basilar opacities reflect atelectasis. Echocardiogram Date: 04/04/21 EF: 60-65% LV Function: normal RWMA: + none Other Findings: + diastolic dysfunction (Type 2 ); no LVH Mildly dilated left ventricle Borderline right ventricular enlargement. Borderline right atrial enlargement. Mild MR. Normal estimated RVSP: 29mmHg Stress Test Date: 07/16/17 Type: exercise (ECHO ) Resting EF: 55-59% Resting LV Function: normal Resting RWMA: + none Echo is negative for inducible ischemia. Stress EKG response showed no evidence of ischemia. MPHR 97%; 7.0 METS achieved. Moderately frequent ventricular ectopy was noted early in stress echocardiogram, but decreased in frequency with progressive exercise and return to postexercise recovery interval. Exercise capacity is below average, with the patient having completed 5 minutes and 45 seconds on a standard Jason protocol. Compared to prior stress echocardiogram study performed 02/10/2015, the patient exercised 6 minutes and 30 seconds at that time 2014 as compared to 5 minutes and 45 seconds on current study. Other Testing Chest CT 07/29/21= Interval resolution of the right upper lobe irregular pulmonary nodules seen on the prior study. No new or suspicious pulmonary nodules identified. No new focal lung consolidations to suggest pneumonia. Hepatic steatosis.
--- NOTE | 2022-03-30 12:14 | History & Physical Report ---
Date of Service March 30, 2022 Assessment & Plan (1) Osteoarthritis of right knee: We will proceed with a right total knee arthroplasty. Postoperatively he was started on Eliquis for DVT prophylaxis and kept overnight in the hospital for postoperative medical management. He plans to use energy physical therapy upon discharge. History of Present Illness Chief Complaint: Osteoarthritis right knee. Primary Care Provider: Jewel Pereira DO Topher is a pleasant 66-year-old male who underwent a right ACL reconstruction in the early . 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 After failing years of conservative treatment, he has elected to proceed with a right total knee arthroplasty. . Allergies Allergy/AdvReac Type Severity Reaction Status Date / Time No Known Allergies Allergy Verified 02/24/22 15:52 Home Medications Medication Instructions Recorded Confirmed Type montelukast 10 mg tablet 10 mg PO HS 04/27/20 02/24/22 History cetirizine 10 mg capsule 10 mg PO HS cap 03/01/21 02/24/22 History cyanocobalamin (vitamin B-12) 1,000 mcg PO QAM tab 03/01/21 02/24/22 History 1,000 mcg tablet,extended release levalbuterol tartrate 45 2 inh INHALATION Q6H PRN 03/01/21 02/24/22 History mcg/actuation aerosol inhaler (Xopenex HFA) vitamins A,C,O-fipo-cugrtu 14,320 1 cap PO BID 03/01/21 02/24/22 History unit-226 mg-200 unit capsule (PreserVision AREDS) apixaban 5 mg tablet 5 mg PO BID #70 tab 12/08/21 02/24/22 Rx multivitamin 1 tab PO QAM 01/05/22 02/24/22 History psyllium husk 3.4 gram/5.4 gram 1 tbsp PO QAM 01/05/22 02/24/22 History oral powder (Metamucil) fluticasone fur. 100 mcg-umeclid 1 inh INHALATION QAM 02/24/22 02/24/22 History 62.5 mcg-vilant 25 mcg inhalat.powder (Trelegy Ellipta) losartan 50 mg-hydrochlorothiazide 0.5 tab PO QAM 02/24/22 02/24/22 History 12.5 mg tablet doxazosin 4 mg tablet 4 mg PO DAILY #90 tab 03/08/22 Rx 3-in-1 Commode #1 ea 03/17/22 Rx pantoprazole 40 mg tablet,delayed 40 mg PO QAM #90 tab 03/28/22 Rx release Past Med/Surg History Medical History Allergic rhinitis Chronic dyspnea Multifactorial per pulm records (diastolic CHF, obesity, deconditioning, obstructive lung disease) Inhaler daily/prn- breathing stable GERD (gastroesophageal reflux disease) History of kidney stones No recent issues History of prostate cancer Dx'ed 2018- attempted prostatectomy S/p radiation and Lupron treatment for 6 months History of rheumatic fever as a child At the age of 3--had a heart murmur but "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 Hypertension Morbid obesity with BMI of 40.0-44.9, adult BMI 41.5 Nausea and vomiting after administration of anesthetic agent On anticoagulant therapy on eliquis bid for hx of PE JOSSIE on CPAP Prothrombin gene mutation Heterozygous; will need lifelong AC per heme records Pulmonary embolism in 03/2021-on Eliquis bid Pulmonary nodule Resolved per heme records Surgical History H/O cataract extraction bilateral H/O thumb surgery right ligament repair History of arthroscopy of right knee ACL repair History of cholecystectomy History of colonoscopy History of left inguinal hernia repair History of lithotripsy History of prostate biopsy malignant History of right inguinal hernia repair History of surgery (~2017) pt states he was in robotic surgery for prostate removal @ [facility], however it was unsuccessful d/t "they were knicking arteries and I was bleeding out so they had to stop and didnt remove it" History of tonsillectomy History of wisdom tooth extraction S/P cystoscopy with ureteral stent placement Family History Father Lung cancer Cancer Grandmother (Maternal) Breast cancer Mother Colorectal cancer Hypertension Brother Colorectal cancer Other No family history of adverse response to anesthesia Denies family history of Ovarian cancer Prostate cancer Myocardial infarction Social History Smoking Status: Former smoker Tobacco Type: Cigarettes Age Started Using Tobacco: 16; Age Quit Using Tobacco: 52; packs per day: 1.5; Years Smoked: 14; Cigarettes Per Day: 30; Second Hand Exposure: No; Hx Alcohol Use: Yes Alcohol type: beer and hard liquor Alcohol type Comment: 2 beers and 1 shot whiskey/night Alcohol Intake Frequency: 4 or More x per/Week Hx Substance Use: No Preferred Language: Austrian Communication Ability: Effective Visual Impairment: No Limitations Hearing Ability: Normal Manager Quality Improvement Required: No Beliefs That Will Affect Care: None marital status: Current Living Situation: Spouse current occupational status: retired How many Children do You have: 5 Feels Safe at Home: Yes Childhood Exposure to Second-Hand Smoke: Yes caffeine: Yes during the past year weight has: remained stable Dental Care, Regularly: Yes Physical Activity Frequency: Daily Seatbelt Use: always Sunscreen Use: Yes Assistive Devices: CPAP and Glasses Review of Systems All systems reviewed & are unremarkable except as noted in HPI & below. Physical Exam On physical examination the right knee, he has a slight varus deformity. His range of motion from 0 to 115 degrees. No instability. Pain of the distal medial femoral condyle and over the medial joint line. Constitutional WD/WN, vitals as above Eyes PERRL, conjunctivae normal, anicteric sclerae ENMT external ear and nose normal, oropharynx normal Neck trachea midline, no thyromegaly Respiratory normal respiratory effort Cardiovascular RRR, no murmur, no edema Gastrointestinal (Abdomen) normal bowel sounds, soft, nontender, no hepatosplenomegaly Psychiatric A+Ox3, euthymic affect Results & Data Results & Data Laboratory Results . Diagnostic Findings X-rays of the right knee show advanced osteoarthritis with joint space narrowing osteophyte formation and [id number] articulation. There are 2 metal lag screws from a previous ACL reconstruction.. PG Care Time/CCT Total # of Minutes Spent Total Time Spent with Patient: Total time spent is greater than 50% in coordination of care (as documented) at patient's floor/unit and/or counseling patient: Coding Level of Care Code None Diagnoses Osteoarthritis of right knee M17.11
[~2022-03-31 08:53] MED LIST changes: +ACETAMINOPHEN 500 MG TAB PO SCH; -BUDE180I INH; +BUPIVACAINE 0.5 % 5 MG/1 ML PF 10ML VIAL ONE; -CETI10TA84 PO; -CYAN100073 PO; -DOXA4TAB2 PO; +FAMOTIDINE 20 MG TAB PO SCH; +GABAPENTIN 300 MG CAP PO SCH; +Ketorolac (*for OR use only*) 30 MG, dexAMETHasone 4 MG, KETAMINE HCL (**OR use only) 1... INFIL SCH; -LEVA45AE; -LEVA45AE INH; -LISI10TA PO; +LR 500ML BOLUS, THEN 15ML/HR IV SCH; +LR 60ML/HR IV SCH; -MULT-190 PO; -PANT40TA PO; +ROPIVACAINE 0.5% 5 MG/ML 30 ML VIAL ONE; +Scopolamine 1 MG TDSY TD SCH; +TRANEXAMIC ACID 1,000 MG **IV Intra-op IV SCH; +ceFAZolin 2000MG 2,000 MG/15 ML SYR IV SCH; +dexAMETHasone 4 MG TAB PO SCH
[2022-03-31] MEDS ORDERED: MIDAZOLAM HCL 1 MG/ML 2ML VIAL ONE ×2 (09:20→10:35)
[2022-03-31] MEDS ORDERED: fentaNYL citrate 100 MCG/2 ML VIAL ONE (09:21)
--- NOTE | 2022-03-31 10:02 | History & Physical Bridge Note ---
Date of Service March 31, 2022 History & Physical Bridge Note I have examined the patient, reviewed the History & Physical and in the interval since the performance of the History & Physical I have noted the following changes of clinical significance: no changes noted
[2022-03-31] MEDS ORDERED: TRANEXAMIC ACID / 0.7% NACL 1,000 MG/100 ML BAG IV STA (10:08)
[2022-03-31] MEDS ORDERED: ONDANSETRON INJ 2 MG/ML 2 ML VIAL IV PRN ×2 (10:22→14:03)
[2022-03-31] MEDS ORDERED: ATROPINE SULFATE 0.1 MG/ML 10ML SYR IV PRN (10:22)
[2022-03-31] MEDS ORDERED: ePHEDrine sulfate 50 MG/ML AMP IV PRN (10:22)
[2022-03-31] MEDS ORDERED: fentaNYL citrate 100 MCG/2 ML VIAL IV PRN (10:22)
[2022-03-31] MEDS ORDERED: ORTHO JOINT ANESTHETIC ONE (10:28)
[2022-03-31] MEDS ORDERED: LIDOCAINE 2% 2 ML VIAL/AMP(20MG/ML) INFIL ONE (11:52)
[2022-03-31] MEDS ORDERED: PROPOFOL IV EMULSION 10 MG/ML 20 ML VIAL IV ONE ×2 (11:52→12:25)
[2022-03-31] MEDS ORDERED: ONDANSETRON INJ 2 MG/ML 2 ML VIAL ONE (12:01)
--- NOTE | 2022-03-31 12:38 | Operative Report ---
PG Post Operative Report Pre & Post Diagnosis Operation Date: 03/31/22 11:40 Pre-Op Diagnosis: Osteoarthritis of Right Knee with retained hardware Post-Op Diagnosis: Osteoarthritis of Right Knee with retained hardware I identified the patient and participated in the time-out.: Yes Procedure Operation Date: 03/31/22 11:40 Actual Procedures p Right Total Knee Arthroplasty, with hardware Removal of Tibial Screw(Right) - Renaldo Alcaraz DO Surgeon Renaldo Alcaraz DO [employer] Plating Machine Operator Renaldo Contreras PAC Estimated Blood Loss 30 Findings Consistent with Post-Op Diagnosis Specimens Right femoral and tibial bone Complications none Disposition Disposition: Recovery Room Indications Topher is a pleasant 66-year-old male who is been dealing with chronic increasing right knee pain. X-rays and clinical examination are diagnostic for advanced arthritis of the right knee. After failing conservative treatment, he elected to proceed with a right total knee arthroplasty. Description of Procedure Implants used: I used a Mahamed Persona total knee arthroplasty system with a size 10 narrow femur, F tibia, 34 oval patella, and a size 10 medial congruent polyethylene bearing. All components were cemented in place with Biomet cement. Tophre arrived [facility] for the above procedure. He was seen in the preoperative holding area and the operative extremity was identified and signed. He was given a preoperative antibiotic, TXA, a spinal anesthetic and an adductor nerve block. He was taken back to the operating room and laid on the table in supine position. He was given basic sedation. The operative knee was then prepped and draped in sterile fashion. A timeout was done, and the patient and the operative extremity was properly identified. A midline incision was made directly over the patella. Dissection was taken down to the extensor mechanism. A subvastus arthrotomy was used. The medial retinaculum was released and the fat pad was mostly excised. The knee was fl exed and the ACL, PCL, and meniscus were removed. The tibial interference screw from the ACL was then identified. A screwdriver was used to remove the tibial interference screw. This completed a removal of hardware from the right knee. A drill was sent down the center of the femoral canal followed by an intramedullary suly. Off that suly a distal femoral cutting block was placed. 9 mm was resected off the distal femur at 5 of valgus. A posterior referencing AP sizing guide was then placed on the distal femur. The femur measured to be a size 10. 2 drill holes were placed in 3 of external rotation. A 4-in-1 cutting block was then impacted into place. Anterior, posterior, and chamfer cuts were then made. The proximal tibia was then exposed. An external tibial alignment guide was placed. A tibial cut guide was then anchored in place and the proximal tibia was then resected. The posterior aspect of the knee was then opened up and any additional meniscus fragments and osteophytes were removed. The tibia measured to be a size F. The tibial plate was then placed in the appropriate rotation and the tibia was drilled and punched. Trial components were then placed. I used a size 10 medial congruent polyethylene insert. The knee was brought through a full range of motion and felt to be stable. The peg holes for the femoral component were then drilled. The patella was then everted and 9 mm was resected off the posterior aspect of the patella. The patella measured to be a size 34 oval. 3 peg holes were then drilled. A trial patella was placed. The knee was once again brought through a full range of motion and felt to be stable. Trial components were then removed. The surrounding soft tissues were injected with 100 cc of an orthopedic pain control cocktail. All components were then cemented into place with Biomet cement. The final polyethylene insert was then snapped into place. Once cement was dry the tourniquet was deflated. Hemostasis was obtained. A dilute betadyne lavage was then done for 3 minutes. The joint was then irrigated with normal saline solution. The subvastus arthrotomy was then closed with #1 Vicryl suture. The skin was closed with 2-0 Vicryl, 3-0V lock suture, and naila. A soft compressive dressing was placed. He was then transferred to a hospital bed and taken to the postanesthesia care unit in stable condition. He tolerated the procedure well. Renaldo Contreras PA-C, was present for the entire procedure. He was critical for patient positioning, prepping, draping, retraction exposure, wound closure and application of sterile dressing. I attest to the content of the Intraoperative Record and any orders documented therein. Any exceptions are noted below.
--- NOTE | 2022-03-31 13:56 | XRay Report ---
TWO VIEWS RIGHT KNEE CLINICAL HISTORY: Postoperative examination. FINDINGS: AP and crosstable lateral portable views of the right knee are obtained. A right knee arthr oplasty is in near anatomic alignment. There has been undersurface remodeling of the patella. No acut e fracture is seen. An anchor from a previous ACL repair is noted in the distal femur. There are expe cted postoperative changes around the knee including skin clips, soft tissue edema, and subcutaneous gas. IMPRESSION: Expected postoperative changes status post right knee arthroplasty. No acute fracture is seen. ACT 112: Negative or not required by law. Electronically signed by: Prem Sanchez M.D. 03/31/2022 1:55 PM
[2022-03-31] MEDS ORDERED: LEVALBUTEROL TARTRATE 15 GM HFA.AER.AD INH PRN (14:03)
[2022-03-31] MEDS ORDERED: KETOROLAC 30 MG/ML VIAL IV SCH (14:03)
[2022-03-31] MEDS ORDERED: NALOXONE HCL 0.4 MG/1 ML VIAL/CARP IV PRN (14:03)
[2022-03-31] MEDS ORDERED: HYDROmorphone INJ 0.5 MG/0.5 ML SYR IV PRN (14:03)
[2022-03-31] MEDS ORDERED: METOCLOPRAMIDE HCL INJ 5 MG/ML 2 ML VIAL IV PRN (14:03)
[2022-03-31] MEDS ORDERED: MAGNESIUM HYDROXIDE SUSP 30 ML UDC PO PRN (14:03)
[2022-03-31] MEDS ORDERED: bisacodyL 10 MG SUPP PR PRN (14:03)
--- NOTE | 2022-03-31 14:09 | Anesthesiology Progress Note ---
Date of Service March 31, 2022 Anesthesia Post Procedure Vital Signs Vital Signs: Temp Pulse Pulse Resp BP BP Pulse Ox 03/31/22 13:40 64 14 127/80 98 03/31/22 13:30 71 13 105/84 95 03/31/22 13:20 62 15 114/69 96 03/31/22 13:10 74 16 113/67 93 03/31/22 13:03 97.0 F L 84 16 114/60 95 03/31/22 09:37 98.1 F 71 20 148/85 H 97 Transfer of Care Handoff Completed per policy Notes Mental Status: alert / awake / arousable and participated in evaluation Patient Amnestic to Procedure: Yes Nausea / Vomiting: adequately controlled Pain: adequately controlled Airway Patency, RR, SpO2: stable & adequate BP & HR: stable & adequate Hydration State: stable & adequate Neuraxial Anesthesia: was administered and sensory block is resolving Anesthetic Complications: no major complications apparent and Pt Satisfied with anesthetic care
[2022-03-31] MEDS ORDERED: ACETAMINOPHEN 500 MG TAB ONE (14:23)
[2022-03-31] MEDS ORDERED: KETOROLAC 30 MG/ML VIAL ONE (14:24)
[2022-03-31] MEDS ORDERED: oxyCODONE HCL IR 5 MG TAB (IMMEDIATE RELEASE) ONE (14:24)
[2022-03-31] MEDS: oxyCODONE HCL IR 5 MG TAB (IMMEDIATE RELEASE) PO PRN ×2 (14:25→21:27)
[2022-03-31] MEDS: ACETAMINOPHEN 500 MG TAB PO SCH ×2 (14:27→21:28)
[2022-03-31] MEDS ORDERED: Scopolamine CHECK PATCH PLACEMENT SCH (16:00)
[2022-03-31] MEDS: SODIUM CHLORIDE 0.9% 1000ML 1,000 ML IV SCH (18:35)
[2022-03-31] MEDS: ceFAZolin 2000MG 2,000 MG/15 ML SYR IV SCH (20:25)
[2022-03-31] MEDS: DOCUSATE SODIUM 100 MG CAP PO SCH (20:29)
[2022-03-31] MEDS: CEROVITE ADV FORMULA TAB PO SCH (20:30)
[2022-03-31] MEDS: KETOROLAC TROMETHAMINE 15 MG/ML VIAL IV SCH (20:36)
[2022-03-31] MEDS ORDERED: MONTELUKAST SODIUM 10 MG TABLET PO SCH (21:00)
[2022-03-31] MEDS ORDERED: CETIRIZINE HCL 10 MG TABLET PO SCH (21:00)
[2022-03-31] MEDS ORDERED: SENNA 8.6 MG TAB PO SCH (21:00)
[2022-04-01] MEDS: KETOROLAC TROMETHAMINE 15 MG/ML VIAL IV SCH ×2 (02:03→09:18)
[2022-04-01] MEDS: SODIUM CHLORIDE 0.9% 1000ML 1,000 ML IV SCH (02:03)
[2022-04-01] MEDS: ceFAZolin 2000MG 2,000 MG/15 ML SYR IV SCH (02:05)
[2022-04-01] MEDS: ACETAMINOPHEN 500 MG TAB PO SCH (05:39)
[2022-04-01 07:16] VITALS: BP 130/79; PULSE 62; TEMP 98.1; O2SAT 95
--- NOTE | 2022-04-01 07:29 | Orthopedic Progress Note ---
Date of Service April 01, 2022 Assessment & Plan (1) Status post right knee replacement: Overall he is doing very well. Is not having much pain in the right knee. He will be seen by physical therapy today for ambulation and range of motion exercises. He is on Eliquis for DVT prophylaxis. The dressing can be changed after physical therapy. He can be discharged home later today. He will follow- up with orthopedics in 2 weeks. Jossy Obando was seen and examined at bedside this morning. Overall he is doing fairly well. He is not any much pain in the right knee. He has been up and ambulating to the bathroom. He has no complaints. Review of Systems All systems reviewed & are unremarkable except as noted in HPI & below. Physical Exam On physical examination of the right knee, the dressing is clean and dry. His leg is out in full extension. He has active dorsiflexion and plantarflexion of the right ankle.. Results & Data Results & Data Laboratory Results . Diagnostic Findings Postoperative x-rays of the right knee show the prosthesis to be in anatomic alignment without any evidence of fracture, dislocation, or loosening. PG Care Time/CCT Total # of Minutes Spent Total Time Spent with Patient: Total time spent is greater than 50% in coordination of care (as documented) at patient's floor/unit and/or counseling patient: Coding Level of Care Code 87491 Post Operative Follow-Up Diagnoses Status post right knee replacement Z96.651
--- NOTE | 2022-04-01 07:30 | Discharge Summary ---
Date of Service April 01, 2022 Admission HPI (Per Admitting) Topher is a pleasant 66-year-old male who underwent a right ACL reconstruction in the early . 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 After failing years of conservative treatment, he has elected to proceed with a right total knee arthroplasty. . Admission Exam (Per Admitting) On physical examination the right knee, he has a slight varus deformity. His range of motion from 0 to 115 degrees. No instability. Pain of the distal medial femoral condyle and over the medial joint line. Principal Diagnosis Same as "Discharge Diagnosis" noted below under Discharge Instructions. Discharge Exam On physical examination of the right knee, the dressing is clean and dry. His leg is out in full extension. He has active dorsiflexion and plantarflexion of the right ankle.. Discharge Data Procedures Performed Operation Date: 03/31/22 11:40 Actual Procedures p Right Total Knee Arthroplasty, (Right) - Renaldo Alcaraz DO s Hardware Removal of Tibial Screw(Right) - Renaldo Alcaraz DO Ordered Studies 03/31/22 05:00 US - OR guided needle placemen Routine Hospital Course (1) Status post right knee replacement: On March 31, 2022 Topher arrived at [facility] and underwent a right knee replaced without complication. He had a spinal anesthetic. Postoperatively he was started on Eliquis for DVT prophylaxis and transferred to the general orthopedic floors. His hospital course was uneventful. On postop day #1, his vital signs were stable and his pain was well controlled. He was able to participate well with physical therapy doing ambulation and range of motion exercises. He was then discharged home. He will follow-up with orthopedics in 2 weeks. PG Care Time/CCT Total # of Minutes Spent Total Time Spent with Patient: Total time spent is greater than 50% in coordination of care (as documented) at patient's floor/unit and/or counseling patient: Discharge Plan Discharge Items Patient Disposition: Home - Home Health Services Reason For Visit: DJD Right Knee Discharge Diagnosis: Right knee replacement Activity: Per Instructions section Non-emergency contact: Surgeon Call non-emergency contact if: your wound has increased redness and your wound has increased drainage Follow-up/Referrals: Jewel Pereira DO [Primary Care Provider] - Diet: Regular Addtl Attending Provider Instructions: Activity and Therapy Recommendations: * If you are using [facility] then therapy will be provided at your home until they feel you have accomplished all of your goals. * If you are using [facility] then Physical Therapy will be provided until they feel you are ready to start Outpatient Physical Therapy. * If you are not using home therapy then Outpatient Physical Therapy should start about 3-5 days from your day of surgery. Therapy will last about 6-10 weeks * It is important not to put a pillow under your knee when you are relaxing or sleeping. It is just as important to make sure you are getting your knee perfectly straight as it is to regain your knee bend. * You were shown a series of exercises in the hospital. Do these exercises three times each day including the exercises you were shown in physical therapy. * Get up and walk several times each day. For the first four weeks, try not to stand or walk for more than one hour at a time. If you do stand or walk for more than one hour, you will not hurt anything, but your leg will likely swell. * As you feel comfortable, you may change from the walker or crutches to a cane and then to independent walking. Medications: * Narcotic You will likely be sent home from the hospital with a prescription for the narcotic pain medication that worked best throughout your stay. * Eliquis continue your Eliquis as prescribed * Other medications may be prescribed for specific circumstances. If you have any questions, please call the office at . * Resume previous home medications unless otherwise instructed TEDs/Elastic Stockings: The white elastic stockings help limit swelling and prevent blood clots from forming in your legs.~ The more you wear them, the more they work. Wear them for six weeks. Dressing Care: The dressing can be changed after physical therapy on postop day #1. Daily dry dressing changes for a few days, especially if the incision is still draining some. If the incision is not draining then you may leave the naila open to air. If there is a little bit of drainage or if the naila are getting stuck on your clothing then cover the incision with a dry dressing. The naila will be removed at your 2 week follow-up appointment. Showering: You may shower 5 days from the day of surgery as long as the incision is no longer draining. You may shower with the naila exposed. Let soapy water run over the naila and pat them dry. Do not scrub or soak the incision. Things To Watch For: * Drainage from the incision site that occurs more than one week after your surgery. * Increased redness at the incision site. * Fever above 102 degrees Fahrenheit. * Unusual chest pain or shortness of breath. * Call [facility] at with any of the above problems Follow-Up Visit: Follow-up with Dr. Alcaraz's PA (Renaldo Contreras) 2-3 weeks after your day of surgery. He will remove your naila and answer any questions. If you have any additional questions or concerns, Dr Alcaraz is usually in the office at the same time and will be available An appointment was probably scheduled when you signed-up for surgery in the office. If you have any questions call Office Instructions: More detailed instructions as well as Frequently Asked Questions were provided in a folder by our office when you signed-up for surgery. Please review these instructions when you get home. If you have any further questions or concerns, please feel free to call the office at [phone] Pending Studies at Discharge: No Stand-Alone Forms: My [facility] Medications and DC Order Prescriptions: New oxycodone-acetaminophen 5-325 mg tablet 1 tab PO Q6H PRN (Reason: pain) Qty: 30 RF: 0 Continued montelukast 10 mg tablet 10 mg PO HS RF: 0 Metamucil 3.4 gram/5.4 gram powder 1 tbsp PO QAM RF: 0 multivitamin Tablet 1 tab PO QAM RF: 0 doxazosin 4 mg tablet 4 mg PO DAILY Qty: 90 RF: 3 (DME) 3-in-1 Commode Misc See Rx Instructions .MEDSUPPLY Qty: 1 RF: 0 pantoprazole 40 mg tablet,delayed release (DR/EC) 40 mg PO QAM Qty: 90 RF: 1 cetirizine 10 mg capsule 10 mg PO HS RF: 0 cyanocobalamin (vitamin B-12) 1,000 mcg tablet extended release 1,000 mcg PO QAM RF: 0 PreserVision AREDS [id number],320-226-200 [id number] capsule 1 cap PO BID RF: 0 levalbuterol tartrate [Xopenex HFA] 45 mcg/actuation HFA aerosol inhaler 2 inh inhalation Q6H PRN (Reason: wheeze) RF: 0 apixaban 5 mg tablet 5 mg PO BID Qty: 70 RF: 0 losartan-hydrochlorothiazide 50-12.5 mg tablet 0.5 tab PO QAM RF: 0 Trelegy Ellipta 100-62.5-25 mcg blister with device 1 inh inhalation QAM RF: 0 Discharge Orders: Discharge Order (Routine); Ordered 04/01/22 Ordered By: Renaldo Alcaraz Admission Data Admit Date/Time: 03/31/22 13:05 Attending Provider: Renaldo Alcaraz Admit Provider: Renaldo Alcaraz Primary Care Provider: Jewel Pereira
[2022-04-01] MEDS ORDERED: dexAMETHasone 4 MG TAB PO SCH (08:00)
[2022-04-01] MEDS ORDERED: APIXABAN 5 MG TABLET PO SCH (09:00)
[2022-04-01] MEDS ORDERED: FLUTICASONE FUROATE 100MCG 14 PUFFS/INHALER INH SCH (09:00)
[2022-04-01] MEDS ORDERED: CYANOCOBALAMIN (B-12) 500 MCG TABLET PO SCH (09:00)
[2022-04-01] MEDS ORDERED: PANTOprazole 40 MG TAB PO SCH (09:00)
[2022-04-01] MEDS ORDERED: UMECLIDINIUM/VILANTEROL 62.5/25MCG 7 PUFFS/INHALER INH SCH (09:00)
[2022-04-01] MEDS ORDERED: LOSARTAN/HCTZ 50/12.5MG TAB PO SCH (09:00)
[2022-04-01] MEDS ORDERED: MULTIVITAMIN TAB PO SCH (09:00)
[2022-04-01] MEDS: DOCUSATE SODIUM 100 MG CAP PO SCH (09:14)
[2022-04-01] MEDS: CEROVITE ADV FORMULA TAB PO SCH (10:35)
[2022-04-01] MEDS ORDERED: DOXAZosin MESYLATE TAB 2 MG TAB PO SCH (21:00)
[2022-04-01] MEDS ORDERED: DOXAZosin MESYLATE 4 MG TAB PO SCH (21:00)
== END 2022-04-01 12:12 | disposition home health service (06) ==
LOC: ASU 08:53 → PACUINP 08:53 → 3W 17:55